=== PATIENT | female | born 2000 | race African-American/Black ===

== ENCOUNTER 2022-10-26 15:31 | Emergency (ER) | payer SELFPAY ==
[2022-10-26] MEDS ORDERED: Boostrix 0.5 ML (Tdap) VIAL (>/=7 yrs of age) ONE (16:16)
[2022-10-26] MEDS ORDERED: Bupivacaine 0.25% 10 ML VIAL ONE (17:00)
[2022-10-26] MEDS ORDERED: Lidocaine 1% w/Epinephrine 1:100K 20 ML VIAL ONE (17:00)
[2022-10-26] MEDS ORDERED: HYDROcodone/Acetaminophen 5/325 mg Tablet ONE (17:06)
[2022-10-26] MEDS ORDERED: Bacitracin 1 PK ONE (19:53)
== END 2022-10-26 20:19 | disposition home or self-care (01) ==
LOC: ERS 15:31
DX: S51.811A Laceration without foreign body of right forearm, initial encounter (principal); W25.XXXA Contact with sharp glass, initial encounter; Z23 Encounter for immunization
CPT/HCPCS: 12006; 90471; 90715; S0020